=== PATIENT | male | born 2000 | race Hispanic/Latino ===

== ENCOUNTER 2021-04-09 21:31 | Emergency (ER) | payer MEDICAID ==
[~2021-04-09] VITALS: Ht 175.3 cm; Wt 71.2 kg
[2021-04-09 21:35] VITALS: BP 137/83
[2021-04-09] MEDS ORDERED: ONDANSETRON HCL 4 MG/2 ML VIAL IVP SCH (21:45)
[2021-04-09] MEDS ORDERED: LAMO200T31 PO (21:59)
[2021-04-09 22:23] VITALS: BP 127/81
[2021-04-09] MEDS ORDERED: ONDANSETRON HCL 4 MG/2 ML VIAL ONE (22:47)
[2021-04-09 23:19] VITALS: BP 112/72
[2021-04-10 00:16] VITALS: BP 112/76
[2021-04-10] MEDS ORDERED: ONDA4TAB10 PO (00:30)
[2021-04-10] MEDS ORDERED: LEVE-43 PO (00:30)
[2021-04-10] MEDS ORDERED: LEVETIRACETAM 500 MG TABLET PO SCH (00:30)
[2021-04-10] MEDS ORDERED: LEVETIRACETAM 500 MG TABLET PO ONE (00:40)
== END 2021-04-10 00:49 | disposition home or self-care (01) ==
LOC: EDH 21:43
DX: R56.9 Unspecified convulsions (principal); R11.2 Nausea with vomiting, unspecified; Z79.899 Other long term (current) drug therapy
CPT/HCPCS: 96374; 99283; J2405

== ENCOUNTER 2022-04-01 12:34 | Emergency (ER) | payer MEDICAID, OTHER ==
[~2022-04-01] VITALS: Ht 167.6 cm; Wt 66.7 kg
[~2022-04-01 12:34] MED LIST: LAMO200T31 PO; LEVE-43 PO; ONDA4TAB10 PO
[2022-04-01 12:56] LABS: BASOPHILS % (AUTO) 0.8 % (0.0-5.0); EOSINOPHILS % (AUTO) 0.9 % (0.0-8.0); HEMATOCRIT 44.3 % (42-54); LYMPHOCYTES % (AUTO) 16.6 % (21.0-51.0); MEAN CORPUSCULAR HEMOGLOBIN 29.4 pg (27.0-33.0); MEAN CORPUSCULAR HGB CONC 34.8 g/dL (32.0-36.0); MEAN CORPUSCULAR VOLUME 84.5 fL (80-100); MONOCYTES % (AUTO) 5.3 % (3.0-13.0); NEUTROPHILS % (AUTO) 76.2 % (40.0-77.0); PLATELET COUNT (AUTO) 247 K/uL (130-400); RED BLOOD CELL COUNT(AUTO) 5.24 MIL/uL (4.50-6.20); RED CELL DISTRIBUTION WIDTH 12.2 % (11.0-15.5); WHITE BLOOD COUNT (AUTO) 8.5 K/uL (4.8-10.8)
[2022-04-01 13:03] LABS: CREATININE 1.1 mg/dL (0.5-1.5); POTASSIUM 3.1 mmol/L (3.5-5.1)
[2022-04-01 13:09] LABS: ALBUMIN 4.7 g/dL (3.5-5.0); BILIRUBIN,TOTAL 0.9 mg/dL (0.2-1.0); TOTAL PROTEIN, SERUM 7.7 g/dL (6.0-8.3)
[2022-04-01] MEDS ORDERED: 0.9%NACL 1000ML 1,000 ML IV SCH (13:30)
[2022-04-01] MEDS ORDERED: POTASSIUM BICARB/CIT AC 25 MEQ TABLET.EFF ONE (13:38)
[2022-04-01 13:40] LABS: APPEARANCE,URINE Cloudy (CLEAR); BILIRUBIN,URINE Small (NEGATIVE); COLOR,URINE Dark Yellow (YELLOW); GLUCOSE, URINE (UA) Negative (NEGATIVE); KETONES,URINE >=160 mg/dL (NEGATIVE); LEUKOCYTE ESTERASE ,URINE Trace (NEGATIVE); NITRATE,URINE Negative (NEGATIVE); OCCULT BLOOD,URINE Negative (NEGATIVE); PH,URINE 7.5 (5.0-8.0); PROTEIN,URINE POS 2+ mg/dL (NEGATIVE)
[2022-04-01 13:48] LABS: AMPHET/METH SCREEN,URINE NEGATIVE (NEGATIVE); BARBITURATE SCREEN, URINE NEGATIVE (NEGATIVE); BENZODIAZEPINES SCREEN,URINE NEGATIVE (NEGATIVE); CANNABINOID SCREEN,URINE POSITIVE (NEGATIVE); COCAINE SCREEN,URINE NEGATIVE (NEGATIVE); OPIATE SCREEN,URINE NEGATIVE (NEGATIVE); PHENCYCLIDINE SCREEN,URINE NEGATIVE (NEGATIVE)
[2022-04-01 13:49] LABS: BACTERIA,URINE Few /HPF (None Seen); MUCUS,URINE Moderate LPF (None Seen); RBC,URINE None Seen /HPF (0-1); SQUAMOUS EPITHELIAL CELL,UR 0-2 /HPF (0-2); WBC,URINE 0-1 /HPF (0-1)
[2022-04-01] MEDS ORDERED: ONDA4TAB10 PO (14:41)
[2022-04-01 14:43] VITALS: BP 127/82
[2022-04-01] MEDS ORDERED: PROMETHAZINE HCL 25 MG/ML 1ML AMPULE IM ONE (14:45)
[2022-04-01] MEDS ORDERED: POTASSIUM BICARB/CIT AC 25 MEQ TABLET.EFF PO ONE (14:45)
== END 2022-04-01 15:37 | disposition home or self-care (01) ==
LOC: EDH 12:34
DX: A08.4 Viral intestinal infection, unspecified (principal); F12.10 Cannabis abuse, uncomplicated; Z20.822 Contact with and (suspected) exposure to COVID-19
CPT/HCPCS: 36415; 80053; 80305; 81001; 85025; 87635; 87804 ×2; 96360; 96372; 99283; C9803; J2550; J7030

== ENCOUNTER 2023-03-13 19:16 | Emergency (ER) | payer MEDICAID ==
[~2023-03-13 19:16] MED LIST changes: +IBUP-2070 PO
[2023-03-13 19:41] VITALS: BP 131/76
[2023-03-13 20:26] LABS: BASOPHILS % (AUTO) 0.7 % (0.0-5.0); EOSINOPHILS % (AUTO) 2.9 % (0.0-8.0); HEMATOCRIT 44.1 % (42-54); MEAN CORPUSCULAR HGB CONC 33.8 g/dL (32.0-36.0); MONOCYTES % (AUTO) 6.8 % (3.0-13.0); NEUTROPHILS % (AUTO) 75.2 % (40.0-77.0); PLATELET COUNT (AUTO) 230 K/uL (130-400); RED BLOOD CELL COUNT(AUTO) 5.13 MIL/uL (4.50-6.20); RED CELL DISTRIBUTION WIDTH 12.5 % (11.0-15.5); WHITE BLOOD COUNT (AUTO) 12.7 K/uL (4.8-10.8)
[2023-03-13 20:34] LABS: CREATININE 0.9 mg/dL (0.5-1.5); POTASSIUM 3.6 mmol/L (3.5-5.1)
[2023-03-13 20:39] LABS: ALBUMIN 4.4 g/dL (3.5-5.0); TOTAL PROTEIN, SERUM 7.6 g/dL (6.0-8.3)
[2023-03-13] MEDS ORDERED: LIDOCAINE HCL-MPF 2% 5ML VIAL ONE (20:48)
== END 2023-03-13 22:31 | disposition home or self-care (01) ==
LOC: EDH 19:16
DX: G40.909 Epilepsy, unspecified, not intractable, without status epilepticus (principal); S01.01XA Laceration without foreign body of scalp, initial encounter; S60.221A Contusion of right hand, initial encounter; S40.012A Contusion of left shoulder, initial encounter; S90.31XA Contusion of right foot, initial encounter; Z79.899 Other long term (current) drug therapy; W18.39XA Other fall on same level, initial encounter; Y93.89 Activity, other specified; Y92.89 Other specified places as the place of occurrence of the external cause; Y99.8 Other external cause status
CPT/HCPCS: 99284; 70450; 80053; 85025; 36415; 73140; 29130; 12002; 80177; J3490

== ENCOUNTER 2023-06-26 13:36 | Emergency (ER) | payer MEDICAID, OTHER ==
[~2023-06-26] VITALS: Ht 167.6 cm; Wt 71.2 kg
[2023-06-26 17:04] LABS: SARS-CoV-2, RNA, NAAT NEGATIVE SARS CoV-2 (NEGATIVE)
[2023-06-26 17:08] LABS: RAPID GROUP A STREP negative (NEGATIVE)
[2023-06-26 17:18] LABS: INFLUENZA TYPE A Negative For Type A (NEGATIVE)
[2023-06-26 17:21] LABS: INFLUENZA TYPE B Positive For Type B (NEGATIVE)
[2023-06-26] MEDS ORDERED: OSEL75 PO (17:27)
[2023-06-26 17:43] VITALS: BP 121/67; PULSE 67; RESP 16; O2SAT 98
== END 2023-06-26 17:52 | disposition home or self-care (01) ==
LOC: EDH 13:36
DX: J10.1 Influenza due to other identified influenza virus with other respiratory manifestations (principal); F41.9 Anxiety disorder, unspecified; R56.9 Unspecified convulsions; Z20.822 Contact with and (suspected) exposure to COVID-19; Z79.899 Other long term (current) drug therapy
CPT/HCPCS: 99283; 87635; 87880; 87804 ×2; C9803